=== PATIENT | female | born 1965 | race Two or more races ===

== ENCOUNTER 2024-06-04 05:15 | Day surgery (SDC) | payer OTHER ==
[2024-05-30 09:41] VITALS: BP 115/76
[2024-05-30 09:57] LABS: HEMATOCRIT 44.7 % (36.0-45.00); HEMOGLOBIN 14.6 g/dL (12.0-15.00); MEAN CORPUSCULAR HEMOGLOBIN 28.5 pg (27.00-32.0); MEAN CORPUSCULAR HGB CONC 32.8 g/dl (32.0-36.0); PLATELET COUNT 292 K/uL (150-450); RED BLOOD COUNT 5.13 M/uL (4.00-6.00); RED CELL DISTRIBUTION WIDTH 13.1 % (11.5-14.5)
[2024-05-30 10:05] LABS: PH,URINE 5.5 (5.0-8.0); URINE APPEARANCE Clear; URINE BILIRRUBIN Negative (NEGATIVE); URINE BLOOD Moderate; URINE COLOR Yellow; URINE GLUCOSE Negative (NEGATIVE); URINE KETONE Negative (NEGATIVE); URINE LEUKOCYTE Small; URINE NITRATE Negative; URINE PROTEIN Negative (NEGATIVE); URINE UROBILINOGEN 0.2 E.U./dl
[2024-05-30 10:09] LABS: URINE BACTERIA 764.9 uL (0.0-1933); URINE EPITHELIAL CELLS 32.4 uL (0.0-38.8); URINE RBC 37.7 uL (0.0-20.8); URINE WBC 15.3 uL (0.0-23.2)
[2024-05-30 10:18] LABS: URINE CAST 0.88 uL (0.0-1.40)
[2024-05-30 10:21] LABS: URINE MUCUS HEAVY
[2024-05-30 10:31] LABS: INR 1.05; PARTIAL THROMBOPLASTIN TIME 24.3 SECONDS (22.0-34.0); PROTHROMBIN TIME 11.4 SECONDS (9.0-11.5)
[2024-05-30 10:34] LABS: ALBUMIN 4.2 gm/dL (3.4-5.0); BILIRUBIN TOTAL 0.63 mg/dL (0.3-1.2); CALCIUM 9.1 mg/dL (8.5-10.1); CREATININE SERUM 0.54 mg/dL (0.55-1.02); GFR 115.55; GLOBULINA 3.7 G/DL (2.4-3.5); POTASSIUM 4.44 mEq/L (3.5-5.1); TOTAL PROTEIN 7.9 gm/dL (6.4-8.2)
[~2024-06-04] VITALS: Ht 162.6 cm; Wt 61.2 kg
[~2024-06-04 05:15] MED LIST: FOSAMAX70 MG; OTEZLA30 MG PO; VITAMIN B-1250 MC1 PO; VITAMIN D310 MCG/1 M PO; ZOCOR20 MG; ZYRTEC10 M3 PO
[2024-06-04] MEDS ORDERED: LIDOCAINE HCL 1% 10ML VIAL IJ ONE (08:30)
[2024-06-04] MEDS ORDERED: CEFAZOLIN SODIUM 2,000 MG in 0.9 % SODIUM CHLORIDE 100 ML IV ONE (08:30)
[2024-06-04] MEDS ORDERED: BUPIVACAINE HCL 30 ML VIAL IJ ONE (08:30)
[2024-06-04] MEDS ORDERED: MORPHINE SULFATE 4 MG/ML VIAL IV ONE ×2 (09:45→10:15)
== END 2024-06-04 11:30 | disposition home or self-care (01) ==
LOC: CIR.AMB 05:15
PROVIDERS: ATTEND Student in an Organized Health Care Education/Training Program
DX: K80.10 Calculus of gallbladder with chronic cholecystitis without obstruction (principal); K82.8 Other specified diseases of gallbladder; Z91.09 Other allergy status, other than to drugs and biological substances